=== PATIENT | male | born 1965 | race Caucasian/White ===

== ENCOUNTER 2016-09-12 19:39 | Inpatient (IN) | payer OTHER ==
[2016-09-12] VITALS (9 sets, daily range): BP systolic 0–113; BP diastolic 0–77
[~2016-09-12] VITALS: Ht 175.3 cm; Wt 71.7 kg
[~2016-09-12 19:39] MED LIST: ADVIL200 MG PO; AMBIEN5 MG PO; BACTRIM,SEPT1 TABLET PO; CITALOPRAM HBR20 MG PO; CLEOCIN150 MG PO; CLINDAMYCIN HC300 MG PO; COUMADIN1 MG PO; COUMADIN6 MG PO; CRESTOR5 MG PO; DICLOFENAC SODI75 MG PO; DILAUDID1 MG/ML IV; ENDOCET 5-3251 EACH PO; FLEXERIL10 MG PO; GABAPENTIN600 MG PO; HYDROMORPHONE HC2 MG PO; HYDROMORPHONE HC4 MG PO; IMITREX100 MG PO; KEFLEX500 MG PO; LEXAPRO10 MG PO; LOVENOX40 MG/0.4 SC; LYRICA50 MG PO; MAALOX ADVANCE355 ML PO; METHADONE5 MG PO; MOTRIN800 MG PO; NAPROXEN500 MG PO; NEURONTIN100 MG PO; NEURONTIN300 MG PO; NEURONTIN600 MG PO; NICODERM CQ1 EAC2 TD; NOHOMEMEDS; NORCO 5/3251 TABLET PO; OXYCODONE HCL5 MG PO; OXYCODONE-APAP1 EACH PO; OXYCODONE15 MG PO; PEPCID20 MG PO; PERCOCET 5/31 TABLET PO; PLAVIX75 MG PO; SENNA PLUS TAB1 EACH PO; SUMATRIPTAN SU100 MG PO; TORADOL30 MG/ML IM; TYLENOL REGULA325 MG PO; ULTRAM50 MG PO; VOLTAREN75 MG PO; ZOFRAN4 MG/2 ML IM
[2016-09-12 20:05] LABS: MEAN PLAT.VOLUME 9.9 uM^3 (9.0-12.4); PLATELET COUNT 446 K/uL (156-360)
[2016-09-12 20:16] LABS: AMYLASE 49 IU/L (1-118); CHLORIDE 110 mEq/L (99-109); HEMATOCRIT 42.6 % (38.0-50.0); MCH 28.9 PG (29.0-34.0); MCHC 33.3 G/DL (30.0-36.0); MCV 86.8 FL (86-99); POTASSIUM 3.1 mEq/L (3.7-5.4); RBC DIS.WIDTH-CV 15.2 % (11.8-14.6); RBC DIS.WIDTH-SD 48.2 % (39-53); RED BLOOD COUNT 4.91 M/uL (4.00-5.50); SODIUM 140 mEq/L (136-147)
[2016-09-12 20:17] LABS: WHITE BLOOD COUNT 31.5 K/uL (4.1-10.2)
[2016-09-12 20:18] LABS: GLUCOSE 120 mg/dL (70-99)
[2016-09-12 20:19] LABS: ANION GAP 12 MEQ/L (2-14); INTER. NORMALIZED RATIO 1.1; PTT 24.1 (25-32)
[2016-09-12 20:21] LABS: GFR ESTIMATE (CALCULATED) > 59 mL/min/; SERUM ETHYL ALCOHOL < 10 mg/dL
[2016-09-12 20:22] LABS: UREA NITROGEN (BUN) 7 mg/dL (9-23)
[2016-09-12 20:24] LABS: LIPASE 27 U/L (1.0-51.0)
[2016-09-12 20:31] LABS: TROP-I INTERPRETATION NEGATIVE; TROPONIN-I < 0.01 ng/mL (0.0-0.30)
[2016-09-12 21:21] LABS: BASOPHIL COUNT 0.1 K/uL (0-0.1); EOSINOPHIL (%) 0.6 % (0-5); EOSINOPHIL COUNT 0.2 K/uL (0-0.3); HEMATOLOGY COMMENT 1 REV; IMMATURE GRANULOCYTE (%) 0.5 % (0.0-0.7); IMMATURE GRANULOCYTE COUNT 1.5 K/uL; LYMPHOCYTE COUNT 3.4 K/uL (1.0-2.8); MONOCYTE (%) 6.3 % (3-12); NEUTROPHIL (%) 81.6 % (45-76); NEUTROPHIL COUNT 25.8 K/uL (1.8-6.4); PLAT.SUFFICIENCY INCREASED; USER ID BW1
[2016-09-12] MEDS ORDERED: DILAUDID4 MG PO (21:56)
[2016-09-12] MEDS ORDERED: METHADONE10 MG PO (21:56)
[2016-09-12 23:16] LABS: HEMATOCRIT 39.8 % (38.0-50.0); MCH 28.4 PG (29.0-34.0); MCHC 32.9 G/DL (30.0-36.0); MCV 86.1 FL (86-99); MEAN PLAT.VOLUME 9.5 uM^3 (9.0-12.4); PLATELET COUNT 441 K/uL (156-360); RBC DIS.WIDTH-CV 15.1 % (11.8-14.6); RBC DIS.WIDTH-SD 47.9 % (39-53); RED BLOOD COUNT 4.62 M/uL (4.00-5.50)
[2016-09-12 23:17] LABS: WHITE BLOOD COUNT 20.5 K/uL (4.1-10.2)
[2016-09-12 23:25] LABS: METH RESISTANT S AUREUS PCR NEGATIVE (NEGATIVE)
[2016-09-12 23:26] LABS: PROBE CHECK PASS; SPECIMEN PROCESSING CONTROL PASS
[2016-09-13] VITALS (24 sets, daily range): BP systolic 84–114; BP diastolic 56–81
[2016-09-13 02:30] LABS: CREATINE KINASE 804 IU/L (1-294); TOTAL CK 804 IU/L (1-294)
[2016-09-13 02:35] LABS: CK-MB 83.2 ng/mL (0.0-4.9)
[2016-09-13 03:13] LABS: TROP-I INTERPRETATION POSITIVE
[2016-09-13 03:14] LABS: TROPONIN-I 14.21 ng/mL (0.0-0.30)
[2016-09-13 04:06] LABS: ADD MIUA? NO; BILIRUBIN NEGATIVE; BLOOD NEGATIVE; COLOR YELLOW ((YELLOW)); GLUCOSE (STRIP) NEGATIVE; KETONES NEGATIVE; LEUKOCYTES NEGATIVE; NITRITE NEGATIVE; PH, URINE 5.5 (5-8); PROTEIN (STRIP) NEGATIVE; UCUL ADDED? NO; UROBILINOGEN 0.2 MG/DL (0.2-1.0)
[2016-09-13 08:38] LABS: EOSINOPHIL (%) 1.5 % (0-5); EOSINOPHIL COUNT 0.2 K/uL (0-0.3); HEMATOCRIT 39.8 % (38.0-50.0); IMMATURE GRANULOCYTE (%) 0.2 % (0.0-0.7); LYMPHOCYTE COUNT 3.2 K/uL (1.0-2.8); MCH 27.5 PG (29.0-34.0); MCHC 31.4 G/DL (30.0-36.0); MCV 87.7 FL (86-99); MEAN PLAT.VOLUME 9.9 uM^3 (9.0-12.4); MONOCYTE (%) 9.3 % (3-12); MONOCYTE COUNT 1.3 K/uL (0-0.8); NEUTROPHIL (%) 64.9 % (45-76); NEUTROPHIL COUNT 8.7 K/uL (1.8-6.4); PLATELET COUNT 382 K/uL (156-360); RBC DIS.WIDTH-CV 15.7 % (11.8-14.6); RBC DIS.WIDTH-SD 50.5 % (39-53); RED BLOOD COUNT 4.54 M/uL (4.00-5.50)
[2016-09-13 08:39] LABS: WHITE BLOOD COUNT 13.4 K/uL (4.1-10.2)
[2016-09-13 08:56] LABS: ANION GAP 8 MEQ/L (2-14); CHLORIDE 107 MEQ/L (99-109); GFR ESTIMATE (CALCULATED) > 59 mL/min/; GLUCOSE 94 mg/dL (70-99); HDL CHOLESTEROL 26 MG/DL (Desirable>=40); LDL CHOLESTEROL 60 mg/dL (Desirable<100); NON-HDL CHOLESTEROL 83 mg/dL (Desirable<160); SAMPLE HEMOLYSIS CHECK 0; SAMPLE ICTERIC CHECK 0; SAMPLE LIPEMIA CHECK 0; SODIUM 140 MEQ/L (136-147); TOTAL CHOLESTEROL 109 mg/dL (Desirable<200); TRIGLYCERIDES 116 MG/DL (Normal: <150); UREA NITROGEN (BUN) 7 mg/dL (9-23)
[2016-09-13 08:57] LABS: POTASSIUM 4.7 MEQ/L (3.7-5.4)
[2016-09-13 09:08] LABS: CREATINE KINASE 752 IU/L (1-294); TOTAL CK 752 IU/L (1-294)
[2016-09-13 09:14] LABS: Estimated Average Glucose 105 mg/dL (70-123); HEMOGLOBIN A1c (GLYCOHEMOGLOB) 5.3 % HGB (Below 5.7)
[2016-09-13 09:18] LABS: TROP-I INTERPRETATION POSITIVE
[2016-09-13 09:31] LABS: CK-MB 110.8 ng/mL (0.0-4.9)
[2016-09-13 14:23] LABS: CREATINE KINASE 608 IU/L (1-294); TOTAL CK 608 IU/L (1-294)
[2016-09-13 14:26] LABS: TROP-I INTERPRETATION POSITIVE; TROPONIN-I 19.37 ng/mL (0.0-0.30)
[2016-09-13 14:49] LABS: CK-MB 92.5 ng/mL (0.0-4.9)
[2016-09-13 18:32] LABS: INTER. NORMALIZED RATIO 1.1; PROTHROMBIN TIME 11.1 (9.2-11.2)
[2016-09-14] VITALS (14 sets, daily range): BP systolic 82–124; BP diastolic 41–65
[2016-09-14 05:35] LABS: ANION GAP 4 MEQ/L (2-14); CHLORIDE 104 MEQ/L (99-109); GFR ESTIMATE (CALCULATED) > 59 mL/min/; GLUCOSE 81 mg/dL (70-99); POTASSIUM 4.4 MEQ/L (3.7-5.4); SAMPLE HEMOLYSIS CHECK 0; SAMPLE ICTERIC CHECK 0; SAMPLE LIPEMIA CHECK 0; SODIUM 140 MEQ/L (136-147); UREA NITROGEN (BUN) 6 mg/dL (9-23)
[2016-09-14 05:45] LABS: BASOPHIL COUNT 0.1 K/uL (0-0.1); EOSINOPHIL (%) 3.6 % (0-5); EOSINOPHIL COUNT 0.3 K/uL (0-0.3); IMMATURE GRANULOCYTE (%) 0.1 % (0.0-0.7); LYMPHOCYTE COUNT 3.2 K/uL (1.0-2.8); MCH 28.3 PG (29.0-34.0); MCHC 31.4 G/DL (30.0-36.0); MEAN PLAT.VOLUME 10.2 uM^3 (9.0-12.4); MONOCYTE (%) 8.1 % (3-12); MONOCYTE COUNT 0.7 K/uL (0-0.8); NEUTROPHIL (%) 49.5 % (45-76); NEUTROPHIL COUNT 4.1 K/uL (1.8-6.4); PLATELET COUNT 329 K/uL (156-360); RBC DIS.WIDTH-CV 15.7 % (11.8-14.6); RBC DIS.WIDTH-SD 51.7 % (39-53); WHITE BLOOD COUNT 8.3 K/uL (4.1-10.2)
[2016-09-14 05:50] LABS: PROTHROMBIN TIME 10.4 (9.2-11.2); PTT 37.8 (25-32)
[2016-09-15] VITALS: BP 99/58
[2016-09-15 04:00] VITALS: BP 102/60
[2016-09-15 07:16] VITALS: BP 108/64
[2016-09-15 08:28] LABS: HEMATOCRIT 37.2 % (38.0-50.0); MCH 28.1 PG (29.0-34.0); MCV 87.9 FL (86-99); MEAN PLAT.VOLUME 9.6 uM^3 (9.0-12.4); PLATELET COUNT 342 K/uL (156-360); RBC DIS.WIDTH-CV 14.9 % (11.8-14.6); RBC DIS.WIDTH-SD 48.2 % (39-53); RED BLOOD COUNT 4.23 M/uL (4.00-5.50); WHITE BLOOD COUNT 7.9 K/uL (4.1-10.2)
[2016-09-15 09:24] LABS: ANION GAP 4 MEQ/L (2-14); CHLORIDE 103 MEQ/L (99-109); GFR ESTIMATE (CALCULATED) > 59 mL/min/; GLUCOSE 81 mg/dL (70-99); POTASSIUM 4.3 MEQ/L (3.7-5.4); SAMPLE HEMOLYSIS CHECK 0; SAMPLE ICTERIC CHECK 0; SAMPLE LIPEMIA CHECK 0; SODIUM 137 MEQ/L (136-147); UREA NITROGEN (BUN) 7 mg/dL (9-23)
[2016-09-15 12:00] VITALS: BP 110/70
[2016-09-15 20:00] VITALS: BP 100/50
[2016-09-16] VITALS: BP 99/54
[2016-09-16 03:53] VITALS: BP 90/52
[2016-09-16 04:58] LABS: EOSINOPHIL COUNT 0.5 K/uL (0-0.3); HEMATOCRIT 36.7 % (38.0-50.0); IMMATURE GRANULOCYTE (%) 0.3 % (0.0-0.7); IMMATURE GRANULOCYTE COUNT 0.2 K/uL; LYMPHOCYTE COUNT 2.3 K/uL (1.0-2.8); MCH 28.1 PG (29.0-34.0); MCHC 32.4 G/DL (30.0-36.0); MCV 86.8 FL (86-99); MEAN PLAT.VOLUME 9.6 uM^3 (9.0-12.4); MONOCYTE (%) 9.4 % (3-12); MONOCYTE COUNT 0.7 K/uL (0-0.8); NEUTROPHIL (%) 51.8 % (45-76); NEUTROPHIL COUNT 3.9 K/uL (1.8-6.4); PLATELET COUNT 328 K/uL (156-360); RBC DIS.WIDTH-CV 14.5 % (11.8-14.6); RED BLOOD COUNT 4.23 M/uL (4.00-5.50); WHITE BLOOD COUNT 7.6 K/uL (4.1-10.2)
[2016-09-16 05:10] LABS: CHLORIDE 100 mEq/L (99-109); POTASSIUM 4.3 mEq/L (3.7-5.4); SODIUM 138 mEq/L (136-147)
[2016-09-16 05:12] LABS: GLUCOSE 87 mg/dL (70-99); PTT 45.6 (25-32)
[2016-09-16 05:13] LABS: ANION GAP 8 MEQ/L (2-14)
[2016-09-16 05:15] LABS: GFR ESTIMATE (CALCULATED) > 59 mL/min/
[2016-09-16 05:16] LABS: UREA NITROGEN (BUN) 8 mg/dL (9-23)
[2016-09-16 07:22] VITALS: BP 96/53
[2016-09-16 10:26] LABS: INTER. NORMALIZED RATIO 1.1; PROTHROMBIN TIME 10.7 (9.2-11.2)
[2016-09-16 11:49] VITALS: BP 97/54
[2016-09-16] MEDS ORDERED: CLOPIDOGREL75 MG PO (12:10)
[2016-09-16] MEDS ORDERED: WARFARIN SODIUM5 MG PO (12:10)
[2016-09-16] MEDS ORDERED: LOPRESSOR25 MG PO (12:10)
[2016-09-16] MEDS ORDERED: ASPIR-LOW81 MG PO (12:10)
[2016-09-16] MEDS ORDERED: ATORVASTATIN CA80 MG PO (12:10)
[2016-09-16] MEDS ORDERED: CORDARONE200 MG PO (12:10)
== END 2016-09-16 14:03 | disposition home or self-care (01) | DRG 249 ==
LOC: EME → EDBD 19:39 → EME 19:39 → CATH 20:08 → EME 20:08 → 4EAST 21:16 → 4WEST 21:16 → 4EAST 09-14 23:32
PROVIDERS: Emergency Medicine; Internal Medicine; Internal Medicine Cardiovascular Disease; Surgery
DX: I21.3 ST elevation (STEMI) myocardial infarction of unspecified site (principal); I48.91 Unspecified atrial fibrillation; E87.6 Hypokalemia; R55 Syncope and collapse; I21.19 ST elevation (STEMI) myocardial infarction involving other coronary artery of inferior wall; F17.200 Nicotine dependence, unspecified, uncomplicated; I73.9 Peripheral vascular disease, unspecified; I95.9 Hypotension, unspecified; D72.829 Elevated white blood cell count, unspecified
CPT/HCPCS: 70450; 70551; 80048; 80061; 81003; 82150; 82550; 82550 91; 82553; 83036; 83690; 83735; 84484; 85025; 85027; 85347; 85610; 85730; 86850; 86900; 86901; 87040; 87641; 93005; 93306; 99281; 99285; C1725; C1769; C1874; C1887; G0480; J0461; J1265; J1644; J2250; J2270; J2405; J3010; J3246; J7050

== ENCOUNTER 2016-09-19 15:31 | Observation (INO) | payer OTHER ==
[~2016-09-19] VITALS: Ht 175.3 cm; Wt 73.6 kg
[~2016-09-19 15:31] MED LIST changes: +ASPIR-LOW81 MG PO; +ATORVASTATIN CA80 MG PO; +CLOPIDOGREL75 MG PO; +CORDARONE200 MG PO; +DILAUDID4 MG PO; +LOPRESSOR25 MG PO; +METHADONE10 MG PO; +WARFARIN SODIUM5 MG PO
[2016-09-19 17:17] LABS: HEMATOCRIT 39.2 % (38.0-50.0); MCHC 32.9 G/DL (30.0-36.0); MCV 85.2 FL (86-99); MEAN PLAT.VOLUME 9.9 uM^3 (9.0-12.4); PLATELET COUNT 351 K/uL (156-360); RBC DIS.WIDTH-CV 14.5 % (11.8-14.6); RBC DIS.WIDTH-SD 44.2 % (39-53); WHITE BLOOD COUNT 6.9 K/uL (4.1-10.2)
[2016-09-19 17:23] LABS: BASOPHIL COUNT 0.1 K/uL (0-0.1); EOSINOPHIL (%) 14.7 % (0-5); IMMATURE GRANULOCYTE (%) 0.1 % (0.0-0.7); IMMATURE GRANULOCYTE COUNT 0.1 K/uL; LYMPHOCYTE COUNT 1.8 K/uL (1.0-2.8); MONOCYTE (%) 9.9 % (3-12); MONOCYTE COUNT 0.7 K/uL (0-0.8); NEUTROPHIL (%) 49.1 % (45-76); NEUTROPHIL COUNT 3.4 K/uL (1.8-6.4)
[2016-09-19 17:31] LABS: INTER. NORMALIZED RATIO 1.9
[2016-09-19 17:39] LABS: PROTHROMBIN TIME 20.2 (9.2-11.2); PTT 33.8 (25-32)
[2016-09-19 18:04] LABS: CHLORIDE 103 mEq/L (99-109); POTASSIUM 4.4 mEq/L (3.7-5.4); SODIUM 135 mEq/L (136-147)
[2016-09-19 18:06] LABS: GLUCOSE 100 mg/dL (70-99)
[2016-09-19 18:07] LABS: ANION GAP 10 MEQ/L (2-14)
[2016-09-19 18:08] LABS: TOTAL BILIRUBIN 0.3 mg/dL (0.0-1.0)
[2016-09-19 18:10] LABS: ALKALINE PHOSPHATASE 93 IU/L (3-129); GFR ESTIMATE (CALCULATED) > 59 mL/min/
[2016-09-19 18:11] LABS: UREA NITROGEN (BUN) 12 mg/dL (9-23)
[2016-09-19 18:51] LABS: TROP-I INTERPRETATION POSITIVE
[2016-09-19] MEDS ORDERED: CELEXA20 MG PO (20:20)
[2016-09-20 01:33] VITALS: BP 100/57
[2016-09-20 02:29] LABS: TROP-I INTERPRETATION POSITIVE; TROPONIN-I 0.82 ng/mL (0.0-0.30)
[2016-09-20 05:03] VITALS: BP 103/66
[2016-09-20 06:29] LABS: HEMATOCRIT 39.8 % (38.0-50.0); MCH 29.1 PG (29.0-34.0); MCHC 33.2 G/DL (30.0-36.0); MCV 87.7 FL (86-99); MEAN PLAT.VOLUME 9.8 uM^3 (9.0-12.4); PLATELET COUNT 310 K/uL (156-360); RBC DIS.WIDTH-CV 14.6 % (11.8-14.6); RBC DIS.WIDTH-SD 46.6 % (39-53); RED BLOOD COUNT 4.54 M/uL (4.00-5.50)
[2016-09-20 06:45] LABS: INTER. NORMALIZED RATIO 1.7; PROTHROMBIN TIME 17.7 (9.2-11.2)
[2016-09-20 06:54] LABS: TROP-I INTERPRETATION POSITIVE
[2016-09-20 07:01] LABS: TROPONIN-I 0.75 ng/mL (0.0-0.30)
[2016-09-20 07:29] LABS: ANION GAP 7 MEQ/L (2-14); CHLORIDE 103 MEQ/L (99-109); GFR ESTIMATE (CALCULATED) > 59 mL/min/; GLUCOSE 89 mg/dL (70-99); POTASSIUM 4.1 MEQ/L (3.7-5.4); SAMPLE HEMOLYSIS CHECK 0; SAMPLE ICTERIC CHECK 0; SAMPLE LIPEMIA CHECK 0; SODIUM 138 MEQ/L (136-147); UREA NITROGEN (BUN) 11 mg/dL (9-23)
[2016-09-20 08:00] VITALS: BP 81/50
[2016-09-20 08:46] VITALS: BP 88/49
[2016-09-20 12:03] VITALS: BP 101/78
[2016-09-20] MEDS ORDERED: CIPRODEX OTIC7.5 ML RIGHT EAR (14:31)
== END 2016-09-20 15:28 | disposition home or self-care (01) ==
LOC: EME 15:31 → EDOF 21:28 → 5WEST 21:28 → EDOF 21:28 → 5WEST 09-20 00:56
PROVIDERS: Emergency Medicine; Hospitalist
DX: R07.9 Chest pain, unspecified (principal); I21.19 ST elevation (STEMI) myocardial infarction involving other coronary artery of inferior wall; I25.10 Atherosclerotic heart disease of native coronary artery without angina pectoris; Z98.61 Coronary angioplasty status; I73.9 Peripheral vascular disease, unspecified; Z87.891 Personal history of nicotine dependence; G89.4 Chronic pain syndrome; Z79.891 Long term (current) use of opiate analgesic; I48.0 Paroxysmal atrial fibrillation; D64.9 Anemia, unspecified; Z79.01 Long term (current) use of anticoagulants; S09.91XA Unspecified injury of ear, initial encounter; Z89.512 Acquired absence of left leg below knee; Z86.69 Personal history of other diseases of the nervous system and sense organs; Z79.02 Long term (current) use of antithrombotics/antiplatelets; Z79.82 Long term (current) use of aspirin; Z98.62 Peripheral vascular angioplasty status; Z88.5 Allergy status to narcotic agent; Z88.8 Allergy status to other drugs, medicaments and biological substances
CPT/HCPCS: 70450; 70486; 71020; 80048; 80053; 84484; 85025; 85027; 85610; 85730; 93005; 99281; 99285; G0378

== ENCOUNTER 2016-12-21 18:23 | Inpatient (IN) | payer OTHER ==
[~2016-12-21] VITALS: Ht 175.3 cm; Wt 73.7 kg
[~2016-12-21 18:23] MED LIST changes: +CELEXA20 MG PO; +CIPRODEX OTIC7.5 ML RIGHT EAR
[2016-12-21 18:44] LABS: POINT-OF-CARE METER ID UU14100415
[2016-12-21 18:50] LABS: POTASSIUM 3.2 mEq/L (3.7-5.4)
[2016-12-21 18:58] LABS: HEMATOCRIT 41.8 % (38.0-50.0); MCH 29.5 PG (29.0-34.0); MCHC 32.8 G/DL (30.0-36.0); MCV 89.9 FL (86-99); MEAN PLAT.VOLUME 9.5 uM^3 (9.0-12.4); PLATELET COUNT 438 K/uL (156-360); RBC DIS.WIDTH-CV 15.1 % (11.8-14.6); RBC DIS.WIDTH-SD 49.8 % (39-53); RED BLOOD COUNT 4.65 M/uL (4.00-5.50); WHITE BLOOD COUNT 16.6 K/uL (4.1-10.2)
[2016-12-21 19:08] LABS: AMYLASE 51 IU/L (1-118)
[2016-12-21 19:10] LABS: CHLORIDE 106 mEq/L (99-109); POTASSIUM 3.3 mEq/L (3.7-5.4); SODIUM 141 mEq/L (136-147)
[2016-12-21 19:12] LABS: GLUCOSE 114 mg/dL (70-99)
[2016-12-21 19:13] LABS: ANION GAP 13 MEQ/L (2-14)
[2016-12-21 19:14] LABS: SERUM ETHYL ALCOHOL < 10 mg/dL
[2016-12-21 19:16] LABS: GFR ESTIMATE (CALCULATED) > 59 mL/min/; UREA NITROGEN (BUN) 12 mg/dL (9-23)
[2016-12-21 19:17] LABS: LIPASE 10 U/L (1.0-51.0)
[2016-12-21 19:20] LABS: TROP-I INTERPRETATION NEGATIVE; TROPONIN-I < 0.01 ng/mL (0.0-0.30)
[2016-12-21 19:31] LABS: PROTHROMBIN TIME 10.3 (9.2-11.2); PTT 22.9 (25-32)
[2016-12-21 21:30] VITALS: BP 96/59
[2016-12-21 21:45] VITALS: BP 98/77
[2016-12-21 22:25] VITALS: BP 88/57
[2016-12-21 22:45] VITALS: BP 102/64
[2016-12-21 23:00] VITALS: BP 109/59
[2016-12-21 23:30] VITALS: BP 88/41
[2016-12-21 23:35] LABS: METH RESISTANT S AUREUS PCR NEGATIVE (NEGATIVE)
[2016-12-21 23:47] LABS: PROBE CHECK PASS; SPECIMEN PROCESSING CONTROL PASS
[2016-12-22] VITALS (15 sets, daily range): BP systolic 0–118; BP diastolic 0–72
[2016-12-22 02:04] LABS: ADD MIUA? NO; BILIRUBIN NEGATIVE; BLOOD NEGATIVE; COLOR YELLOW ((YELLOW)); GLUCOSE (STRIP) NEGATIVE; KETONES NEGATIVE; LEUKOCYTES NEGATIVE; NITRITE NEGATIVE; PROTEIN (STRIP) NEGATIVE; UCUL ADDED? NO; UROBILINOGEN 0.2 MG/DL (0.2-1.0)
[2016-12-22 02:29] LABS: SPECIFIC GRAVITY 1.078 (1.000-1.030)
[2016-12-22 04:41] LABS: BASOPHIL COUNT 0.1 K/uL (0-0.1); EOSINOPHIL (%) 1.3 % (0-5); EOSINOPHIL COUNT 0.2 K/uL (0-0.3); HEMATOCRIT 38.2 % (38.0-50.0); IMMATURE GRANULOCYTE (%) 0.2 % (0.0-0.7); INSTRUMENT ABS NEUTROPHIL CT 8.3 K/uL; LYMPHOCYTE COUNT 2.6 K/uL (1.0-2.8); MCH 29.4 PG (29.0-34.0); MCHC 32.2 G/DL (30.0-36.0); MCV 91.2 FL (86-99); MEAN PLAT.VOLUME 9.6 uM^3 (9.0-12.4); MONOCYTE (%) 7.4 % (3-12); MONOCYTE COUNT 0.9 K/uL (0-0.8); NEUTROPHIL (%) 69.2 % (45-76); NEUTROPHIL COUNT 8.3 K/uL (1.8-6.4); PLATELET COUNT 323 K/uL (156-360); RBC DIS.WIDTH-CV 15.4 % (11.8-14.6); RBC DIS.WIDTH-SD 51.4 % (39-53); RED BLOOD COUNT 4.19 M/uL (4.00-5.50)
[2016-12-22 05:04] LABS: CHLORIDE 108 mEq/L (99-109); SODIUM 139 mEq/L (136-147)
[2016-12-22 05:06] LABS: GLUCOSE 102 mg/dL (70-99)
[2016-12-22 05:08] LABS: ANION GAP 9 MEQ/L (2-14)
[2016-12-22 05:09] LABS: POTASSIUM 4.3 mEq/L (3.7-5.4); TROP-I INTERPRETATION POSITIVE; TROPONIN-I 15.09 ng/mL (0.0-0.30)
[2016-12-22 05:10] LABS: GFR ESTIMATE (CALCULATED) > 59 mL/min/
[2016-12-22 05:11] LABS: UREA NITROGEN (BUN) 11 mg/dL (9-23)
[2016-12-22 05:13] LABS: AMPHETAMINES QUANT VALUE 0 NG/ML; BARBITUATES QUANT VALUE 0 NG/ML; BENZODIAZEPINES, URINE SCREEN POSITIVE (200 ng/mL); PHENCYCLIDINE QUANT VALUE 0 NG/ML
[2016-12-22 13:51] LABS: TROP-I INTERPRETATION POSITIVE; TROPONIN-I 10.65 ng/mL (0.0-0.30)
[2016-12-22 18:35] LABS: TROP-I INTERPRETATION POSITIVE; TROPONIN-I 7.59 ng/mL (0.0-0.30)
[2016-12-23] VITALS: BP 101/62
[2016-12-23 04:00] VITALS: BP 94/54
[2016-12-23 08:00] VITALS: BP 99/68
[2016-12-23] MEDS ORDERED: BRILINTA90 MG PO (10:24)
[2016-12-23] MEDS ORDERED: ATORVASTATIN CA40 MG PO (10:25)
[2016-12-23] MEDS ORDERED: LOPRESSOR25 MG PO (10:25)
[2016-12-23] MEDS ORDERED: LISINOPRIL2.5 MG PO (10:25)
[2016-12-23] MEDS ORDERED: ASPIR-LOW81 MG PO (10:25)
[2016-12-23] MEDS ORDERED: ENDOCET 5-3251 EACH PO (10:26)
== END 2016-12-23 14:00 | disposition home or self-care (01) | DRG 247 ==
LOC: EME → EDBD 18:23 → EME 18:23 → CATH 20:02 → 4WEST 21:11
PROVIDERS: Emergency Medicine; Internal Medicine Cardiovascular Disease
DX: I21.19 ST elevation (STEMI) myocardial infarction involving other coronary artery of inferior wall (principal); T82.858A Stenosis of other vascular prosthetic devices, implants and grafts, initial encounter; I25.2 Old myocardial infarction; Z87.891 Personal history of nicotine dependence; G89.4 Chronic pain syndrome; F11.20 Opioid dependence, uncomplicated; Z89.612 Acquired absence of left leg above knee; I48.91 Unspecified atrial fibrillation; Z79.82 Long term (current) use of aspirin
CPT/HCPCS: 71010; 80047; 80048; 80306 90; 81003; 82150; 82948; 83605; 83690; 83880; 84484; 85025; 85027; 85347; 85610; 85730; 86900; 86901; 87641; 93005; 93306; 94760; 94799; 99281; 99285; C1725; C1769; C1874; C1887; C1894; G0480; J0461; J1644; J2250; J2270; J2405; J3010; J3246; J7030

== ENCOUNTER 2017-02-05 22:34 | Inpatient (IN) | payer OTHER ==
[~2017-02-05] VITALS: Ht 175.3 cm; Wt 73.5 kg
[~2017-02-05 22:34] MED LIST changes: +ATORVASTATIN CA40 MG PO; +BRILINTA90 MG PO; +LISINOPRIL2.5 MG PO
[2017-02-06 00:01] LABS: HEMATOCRIT 42.9 % (38.0-50.0); MCH 30.2 PG (29.0-34.0); MCHC 33.6 G/DL (30.0-36.0); MCV 89.9 FL (86-99); MEAN PLAT.VOLUME 9.1 uM^3 (9.0-12.4); PLATELET COUNT 397 K/uL (156-360); RBC DIS.WIDTH-CV 13.7 % (11.8-14.6); RBC DIS.WIDTH-SD 45.4 % (39-53); RED BLOOD COUNT 4.77 M/uL (4.00-5.50); WHITE BLOOD COUNT 9.5 K/uL (4.1-10.2)
[2017-02-06 00:09] LABS: CREATININE 0.8 mg/dL (0.6-1.3); POTASSIUM 3.6 mEq/L (3.7-5.4)
[2017-02-06 00:15] LABS: CHLORIDE 109 mEq/L (99-109); POTASSIUM 3.3 mEq/L (3.7-5.4); SODIUM 142 mEq/L (136-147)
[2017-02-06 00:17] LABS: GLUCOSE 113 mg/dL (70-99)
[2017-02-06 00:18] LABS: ANION GAP 11 MEQ/L (2-14)
[2017-02-06 00:20] LABS: PROTHROMBIN TIME 9.7 (9.2-11.2); PTT 25.7 (25-32)
[2017-02-06 00:21] LABS: GFR ESTIMATE (CALCULATED) > 59 mL/min/; UREA NITROGEN (BUN) 12 mg/dL (9-23)
[2017-02-06 00:25] LABS: TROP-I INTERPRETATION NEGATIVE; TROPONIN-I < 0.01 ng/mL (0.0-0.30)
[2017-02-06 00:47] LABS: SERUM ETHYL ALCOHOL < 10 mg/dL
[2017-02-06 05:41] LABS: HDL CHOLESTEROL 36 MG/DL (Desirable>=40); LDL CHOLESTEROL 85 mg/dL (Desirable<100); NON-HDL CHOLESTEROL 117 mg/dL (Desirable<160); SAMPLE HEMOLYSIS CHECK 0; SAMPLE ICTERIC CHECK 0; SAMPLE LIPEMIA CHECK 0; TOTAL CHOLESTEROL 153 mg/dL (Desirable<200); TRIGLYCERIDES 160 MG/DL (Normal: <150)
[2017-02-06 07:43] LABS: Estimated Average Glucose 114 mg/dL (70-123); HEMOGLOBIN A1c (GLYCOHEMOGLOB) 5.6 % HGB (Below 5.7)
[2017-02-06 07:45] VITALS: BP 117/74
[2017-02-06 11:00] VITALS: BP 104/55
[2017-02-06] MEDS ORDERED: BRILINTA90 MG PO (11:57)
[2017-02-06] MEDS ORDERED: LIPITOR40 MG PO (11:57)
[2017-02-06] MEDS ORDERED: WELLBUTRIN XL150 MG PO (11:58)
[2017-02-06] MEDS ORDERED: LO-DOSE ASPIRIN81 M2 PO (11:58)
[2017-02-06] MEDS ORDERED: METOPROLOL TART25 MG PO (11:58)
[2017-02-06 13:31] LABS: TROP-I INTERPRETATION NEGATIVE; TROPONIN-I < 0.01 ng/mL (0.0-0.30)
[2017-02-06 15:15] VITALS: BP 98/58
[2017-02-06 18:48] LABS: TROP-I INTERPRETATION NEGATIVE; TROPONIN-I < 0.01 ng/mL (0.0-0.30)
[2017-02-06 19:58] VITALS: BP 105/59
[2017-02-06 21:12] VITALS: BP 98/64
[2017-02-06 23:46] VITALS: BP 96/50
[2017-02-07 03:34] VITALS: BP 96/56
[2017-02-07 06:36] LABS: HEMATOCRIT 39.7 % (38.0-50.0); MCH 30.6 PG (29.0-34.0); MCHC 33.2 G/DL (30.0-36.0); MCV 92.1 FL (86-99); MEAN PLAT.VOLUME 8.9 uM^3 (9.0-12.4); PLATELET COUNT 351 K/uL (156-360); RBC DIS.WIDTH-CV 13.8 % (11.8-14.6); RBC DIS.WIDTH-SD 47.4 % (39-53); RED BLOOD COUNT 4.31 M/uL (4.00-5.50); WHITE BLOOD COUNT 6.7 K/uL (4.1-10.2)
[2017-02-07 07:44] VITALS: BP 114/58
[2017-02-07] MEDS ORDERED: ENDOCET 5-3251 EACH PO (11:04)
[2017-02-07] MEDS ORDERED: AMOXICILLIN875 MG PO (11:04)
[2017-02-07 11:59] VITALS: BP 114/58
== END 2017-02-07 14:40 | disposition home or self-care (01) | DRG 152 ==
LOC: EME 22:34 → EDOF 02-06 03:27 → 4EAST 02-06 07:42 → 5SOUTH 02-06 21:00
PROVIDERS: Emergency Medicine; Hospitalist; Internal Medicine
DX: J32.9 Chronic sinusitis, unspecified (principal); F44.9 Dissociative and conversion disorder, unspecified; I48.0 Paroxysmal atrial fibrillation; I25.2 Old myocardial infarction; B97.89 Other viral agents as the cause of diseases classified elsewhere; I25.10 Atherosclerotic heart disease of native coronary artery without angina pectoris; G89.4 Chronic pain syndrome; G51.0 Bell's palsy; I73.9 Peripheral vascular disease, unspecified; I63.9 Cerebral infarction, unspecified; F17.200 Nicotine dependence, unspecified, uncomplicated; Z95.5 Presence of coronary angioplasty implant and graft; Z89.512 Acquired absence of left leg below knee
CPT/HCPCS: 70450; 70496; 70498; 70551; 71020; 71275; 80047; 80048; 80061; 83036; 83605; 84484; 85027; 85610; 85730; 93005; 93926; 99281; 99284; G0480; J1170; J1650; J1885; J2405; J7030

== ENCOUNTER 2018-01-08 12:21 | Observation (INO) | payer OTHER ==
[~2018-01-08] VITALS: Ht 175.3 cm; Wt 70.0 kg
[~2018-01-08 12:21] MED LIST changes: +AMOXICILLIN875 MG PO; +LIPITOR40 MG PO; +LO-DOSE ASPIRIN81 M2 PO; +METOPROLOL TART25 MG PO; +WELLBUTRIN XL150 MG PO
[2018-01-08 12:58] LABS: HEMATOCRIT 47.4 % (38.0-50.0); HEMOGLOBIN 16.5 G/DL (12.5-16.6); MCH 31.1 PG (29.0-34.0); MCHC 34.8 G/DL (30.0-36.0); MCV 89.4 FL (86-99); PLATELET COUNT 326 K/uL (156-360); RBC DIS.WIDTH-CV 13.2 % (11.8-14.6); RBC DIS.WIDTH-SD 43.5 % (39-53); WHITE BLOOD COUNT 9.2 K/uL (4.1-10.2)
[2018-01-08 13:06] LABS: ALBUMIN 4.4 g/dL (3.2-4.8); CHLORIDE 107 mEq/L (99-109); POTASSIUM 4.1 mEq/L (3.7-5.4); SODIUM 138 mEq/L (136-147)
[2018-01-08 13:08] LABS: PTT 31.7 SEC (25-37)
[2018-01-08 13:09] LABS: GLUCOSE 110 mg/dL (70-99); TOTAL PROTEIN 7.1 g/dL (6.4-8.3)
[2018-01-08 13:11] LABS: TOTAL BILIRUBIN 0.5 mg/dL (0.0-1.0)
[2018-01-08 13:12] LABS: ALKALINE PHOSPHATASE 117 IU/L (3-129); CREATININE 0.8 mg/dL (0.6-1.3); GFR ESTIMATE (CALCULATED) > 59 mL/min/ (58.99-99999)
[2018-01-08 13:13] LABS: UREA NITROGEN (BUN) 7 mg/dL (9-23)
[2018-01-08 13:14] LABS: AST (GOT) 14 IU/L (2-34)
[2018-01-08 13:15] LABS: ALT (GPT) 14 IU/L (3-49)
[2018-01-08 13:18] LABS: TROP-I INTERPRETATION NEGATIVE; TROPONIN-I < 0.01 ng/mL (0.0-0.30)
[2018-01-08 16:25] VITALS: BP 107/70
== END 2018-01-08 16:44 | disposition left against medical advice (07) ==
LOC: EME 12:21 → EDOF 14:18 → ENRESERV 14:18 → 4SOUTH 15:25
PROVIDERS: Emergency Medicine
DX: R07.9 Chest pain, unspecified (principal); I25.10 Atherosclerotic heart disease of native coronary artery without angina pectoris; I25.2 Old myocardial infarction; Z95.5 Presence of coronary angioplasty implant and graft; I48.0 Paroxysmal atrial fibrillation; Z89.512 Acquired absence of left leg below knee; G89.4 Chronic pain syndrome; I73.9 Peripheral vascular disease, unspecified; F43.20 Adjustment disorder, unspecified; D64.9 Anemia, unspecified; E78.5 Hyperlipidemia, unspecified; Z95.820 Peripheral vascular angioplasty status with implants and grafts; Z79.82 Long term (current) use of aspirin; Z87.891 Personal history of nicotine dependence; Z83.3 Family history of diabetes mellitus; Z82.49 Family history of ischemic heart disease and other diseases of the circulatory system; Z80.3 Family history of malignant neoplasm of breast
CPT/HCPCS: 71046; 80053; 84484; 85027; 85610; 85730; 93005; 99281; 99285; G0378; J1644; J3010

== ENCOUNTER 2018-03-09 14:41 | Emergency (ER) | payer OTHER ==
[~2018-03-09] VITALS: Ht 175.3 cm; Wt 70.1 kg
[2018-03-09] MEDS ORDERED: AMOXICILLIN500 M1 PO (16:41)
[2018-03-09] MEDS ORDERED: NORCO 5/3251 TABLET PO (16:41)
[2018-03-09] MEDS ORDERED: REGLAN10 MG PO (16:41)
[2018-03-09 18:12] VITALS: BP 122/76
== END 2018-03-09 18:17 | disposition home or self-care (01) ==
LOC: EME 14:41
PROC: 3E0T3BZ Introduction of Anesthetic Agent into Peripheral Nerves and Plexi, Percutaneous Approach (ICD-10-PCS; principal; 2018-03-09)
DX: K02.9 Dental caries, unspecified (principal); R51 Headache; Z79.82 Long term (current) use of aspirin; F32.9 Major depressive disorder, single episode, unspecified; I25.2 Old myocardial infarction; Z89.512 Acquired absence of left leg below knee; Z95.5 Presence of coronary angioplasty implant and graft; Z88.5 Allergy status to narcotic agent; Z87.891 Personal history of nicotine dependence
CPT/HCPCS: 99281; 99284; J1885